=== PATIENT | female | born 1955 | race Caucasian/White ===

== ENCOUNTER 2017-04-04 11:33 | Outpatient (CLI) | payer OTHER | END 2017-04-04 11:34 | disposition home or self-care (01) | LOC: LABLEX 11:33 | PROVIDERS: ATTEND Family Medicine | DX: Z00.00 Encounter for general adult medical examination without abnormal findings (principal) | CPT/HCPCS: 87624; 88142; G0123 ==

== ENCOUNTER 2017-04-04 11:33 | Outpatient (CLI) | payer OTHER | END 2017-04-04 11:34 | disposition home or self-care (01) | LOC: LABLEX 11:33 | PROVIDERS: ATTEND Family Medicine | DX: Z00.00 Encounter for general adult medical examination without abnormal findings (principal) ==